=== PATIENT | female | born 1940 | race Asian ===

== ENCOUNTER 2023-12-22 08:46 | Inpatient (IN) | payer OTHER, MEDICAID ==
[~2023-12-22] VITALS: Ht 157.5 cm; Wt 63.5 kg
[2023-12-22] VITALS (7 sets, daily range): BP systolic 126–144; BP diastolic 78–90; PULSE 76–78; RESP 16–18; TEMP 96.7–97.7; O2SAT 94–98
[~2023-12-22 08:46] MED LIST: DONE10TA37 PO; EMPA10TA PO; MEGE40SU4 PO; MELA10CA PO; MEMA10TA56 PO; METF-346 PO; MIRT-33 PO; PANT40EC56 PO; RISP1SOL PO; ROSU10TA34 PO; VALP250S5 PO
[2023-12-22 10:41] LABS: BASOPHILS # (AUTO) 0.1 K/uL (0.00-0.22); BASOPHILS % (AUTO) 0.7 % (0.0-2.0); EOSINOPHILS # (AUTO) 0.1 K/uL (0-0.4); EOSINOPHILS % (AUTO) 1.4 % (0.0-4.0); HEMATOCRIT 37.1 % (36-48); HEMOGLOBIN 12.3 g/dL (12.0-16.0); LYMPHOCYTES # (AUTO) 1.4 K/uL (2.5-16.5); LYMPHOCYTES % (AUTO) 18.5 % (20.5-51.1); MEAN CORPUSCULAR HEMOGLOBIN 31 pg (27-31); MEAN CORPUSCULAR HGB CONC 33 g/dL (33-37); MEAN CORPUSCULAR VOLUME 92.9 fL (80-94); MONOCYTES # (AUTO) 0.7 K/uL (0.8-1.0); MONOCYTES % (AUTO) 8.6 % (1.7-9.3); NEUTROPHILS # (AUTO) 5.4 K/uL (1.8-7.7); NEUTROPHILS % (AUTO) 70.8 % (42.2-75.2); PLATELET COUNT (AUTO) 185 K/uL (140-450); RED CELL DISTRIBUTION WIDTH 14.3 % (11.6-13.7); WHITE BLOOD COUNT (AUTO) 7.7 K/uL (4.8-10.8)
[2023-12-22] MEDS ORDERED: OMEG100016 PO (10:42)
[2023-12-22] MEDS ORDERED: MEGE40SU5 PO (10:42)
[2023-12-22] MEDS ORDERED: DOCU-299 PO (10:42)
[2023-12-22] MEDS ORDERED: CRAN450T5 PO (10:42)
[2023-12-22] MEDS ORDERED: MULT-2429 PO (10:42)
[2023-12-22] MEDS ORDERED: VALP250S5 PO ×2 (10:42)
[2023-12-22] MEDS ORDERED: LACT1TAB34 PO (10:42)
[2023-12-22] MEDS ORDERED: MELA10CA PO (10:42)
[2023-12-22] MEDS ORDERED: CALC-810 PO (10:42)
[2023-12-22] MEDS ORDERED: ERTU5TAB PO (10:42)
[2023-12-22] MEDS ORDERED: INSU100S5 IJ (10:42)
[2023-12-22] MEDS ORDERED: RISP1SOL PO (10:42)
[2023-12-22] MEDS ORDERED: NYST15CR10 TP (10:42)
[2023-12-22 10:51] LABS: ANION GAP 12.2 (8-16); CALCIUM 9.2 mg/dL (8.5-10.1); CARBON DIOXIDE 28.4 mmol/L (21-32); CHLORIDE 106 mmol/L (98-107); CREATININE 0.9 mg/dL (0.6-1.3); GLUCOSE 97 mg/dL (74-106); POTASSIUM 3.6 mmol/L (3.5-5.1); SODIUM SERUM 143 mmol/L (136-145); UREA NITROGEN, BLOOD 12 mg/dL (7-18)
[2023-12-22 11:11] LABS: ALBUMIN 3.1 g/dL (3.4-5.0); BILIRUBIN,DIRECT 0.2 mg/dL (0.0-0.3); PHOSPHORUS 3.7 mg/dL (2.5-4.9); THYROID STIMULATING HORMONE 1.2 uIU/mL (0.34-3.74); TOTAL BILIRUBIN 0.7 mg/dL (0.0-1.0); TOTAL PROTEIN, SERUM 6.9 g/dL (6.4-8.2)
[2023-12-22 11:32] LABS: APPEARANCE,URINE CLEAR (CLEAR); BILIRUBIN,URINE NEGATIVE (NEGATIVE); BLOOD, URINE 1+ (NEGATIVE); COLOR,URINE YELLOW (YELLOW); LEUKOCYTE ESTERASE ,URINE TRACE (NEGATIVE); NITRITE, URINE POSITIVE (NEGATIVE); PROTEIN,URINE TRACE (NEGATIVE); UGLUCOSE 3+ (NEGATIVE)
[2023-12-22 11:52] LABS: BACTERIA,URINE 10-30 (MOD) /HPF (None Seen); SQUAMOUS EPITHELIAL CELL,UR 0-3 (FEW) /LPF (0-3 (FEW))
[2023-12-22] MEDS ORDERED: cefTRIAXone 1,000 MG VIAL ONE (12:19)
[2023-12-22] MEDS ORDERED: ONDANSETRON 4 MG/2 ML VIAL IVP PRN (12:40)
[2023-12-22] MEDS ORDERED: ACETAMINOPHEN 325 MG TAB PO PRN (12:40)
[2023-12-22] MEDS ORDERED: INSULIN LISPRO SLIDING SCALE 100 UNITS/ML VIAL SUBQ PRN (12:45)
[2023-12-22] MEDS ORDERED: DEXTROSE 50% 50 ML SYR IVP PRN (12:45)
[2023-12-22] MEDS: NACL 0.9% 1,000 ML IV SCH (13:02)
[2023-12-22] MEDS: BLOOD GLUCOSE MONITORING 1 DEV DEV FS SCH (17:21)
[2023-12-22] MEDS: MEMANTINE 10 MG TAB PO SCH (21:33)
[2023-12-23 04:00] VITALS: BP 128/74; PULSE 77; RESP 18; TEMP 97.3; O2SAT 94
[2023-12-23 07:15] LABS: BASOPHILS % (AUTO) 0.4 % (0.0-2.0); EOSINOPHILS # (AUTO) 0.2 K/uL (0-0.4); HEMATOCRIT 35.4 % (36-48); LYMPHOCYTES # (AUTO) 1.5 K/uL (2.5-16.5); LYMPHOCYTES % (AUTO) 18.3 % (20.5-51.1); MEAN CORPUSCULAR HEMOGLOBIN 32 pg (27-31); MEAN CORPUSCULAR HGB CONC 34 g/dL (33-37); MONOCYTES # (AUTO) 0.6 K/uL (0.8-1.0); MONOCYTES % (AUTO) 7.2 % (1.7-9.3); NEUTROPHILS % (AUTO) 72.1 % (42.2-75.2); PLATELET COUNT (AUTO) 190 K/uL (140-450); RED BLOOD CELL COUNT(AUTO) 3.81 MIL/uL (4.20-5.40); RED CELL DISTRIBUTION WIDTH 14.5 % (11.6-13.7); WHITE BLOOD COUNT (AUTO) 8.4 K/uL (4.8-10.8)
[2023-12-23 08:00] VITALS: BP 139/71; PULSE 91; RESP 18; TEMP 97.1; O2SAT 100
[2023-12-23 08:01] LABS: ALANINE AMINOTRANSFERASE 19 U/L (12-78); ALBUMIN 2.9 g/dL (3.4-5.0); ALKALINE PHOSPHATASE 62 U/L (50-136); ANION GAP 16.5 (8-16); ASPARTATE AMINOTRANSFERASE 29 U/L (15-37); CALCIUM 8.6 mg/dL (8.5-10.1); CARBON DIOXIDE 23.1 mmol/L (21-32); CHLORIDE 110 mmol/L (98-107); CREATININE 0.8 mg/dL (0.6-1.3); GLUCOSE 74 mg/dL (74-106); POTASSIUM 3.6 mmol/L (3.5-5.1); SODIUM SERUM 146 mmol/L (136-145); TOTAL BILIRUBIN 0.6 mg/dL (0.0-1.0); TOTAL PROTEIN, SERUM 6.5 g/dL (6.4-8.2); UREA NITROGEN, BLOOD 10 mg/dL (7-18)
[2023-12-23] MEDS: PANTOPRAZOLE 40 MG TABEC PO SCH (09:30)
[2023-12-23] MEDS: DONEPEZIL 10 MG TAB PO SCH (09:30)
[2023-12-23] MEDS: DOCUSATE SODIUM 100 MG GELCAP PO SCH (09:30)
[2023-12-23] MEDS ORDERED: RISPERIDONE PO SCH (17:00)
[2023-12-23 20:00] VITALS: BP 130/82; PULSE 80; RESP 18; TEMP 98.4; O2SAT 100; O2SAT 98
[2023-12-23] MEDS: ZOLPIDEM 5 MG TAB PO PRN (21:48)
[2023-12-24 04:00] VITALS: BP 136/75; PULSE 78; RESP 16; TEMP 97.9; O2SAT 98
[2023-12-24 06:56] LABS: BASOPHILS % (AUTO) 0.4 % (0.0-2.0); EOSINOPHILS # (AUTO) 0.1 K/uL (0-0.4); HEMATOCRIT 36.3 % (36-48); HEMOGLOBIN 12.2 g/dL (12.0-16.0); LYMPHOCYTES # (AUTO) 1.4 K/uL (2.5-16.5); LYMPHOCYTES % (AUTO) 18.4 % (20.5-51.1); MEAN CORPUSCULAR HEMOGLOBIN 31 pg (27-31); MEAN CORPUSCULAR HGB CONC 34 g/dL (33-37); MEAN CORPUSCULAR VOLUME 93.3 fL (80-94); MONOCYTES # (AUTO) 0.6 K/uL (0.8-1.0); MONOCYTES % (AUTO) 7.4 % (1.7-9.3); NEUTROPHILS # (AUTO) 5.3 K/uL (1.8-7.7); NEUTROPHILS % (AUTO) 71.8 % (42.2-75.2); PLATELET COUNT (AUTO) 196 K/uL (140-450); RED BLOOD CELL COUNT(AUTO) 3.89 MIL/uL (4.20-5.40); RED CELL DISTRIBUTION WIDTH 14.6 % (11.6-13.7); WHITE BLOOD COUNT (AUTO) 7.4 K/uL (4.8-10.8)
[2023-12-24 08:00] VITALS: BP 139/81; PULSE 86; RESP 18; TEMP 97.1; O2SAT 96
[2023-12-24 08:01] LABS: ALANINE AMINOTRANSFERASE 20 U/L (12-78); ALBUMIN 2.8 g/dL (3.4-5.0); ALKALINE PHOSPHATASE 63 U/L (50-136); ANION GAP 16.1 (8-16); ASPARTATE AMINOTRANSFERASE 23 U/L (15-37); CALCIUM 8.5 mg/dL (8.5-10.1); CARBON DIOXIDE 23.3 mmol/L (21-32); CHLORIDE 109 mmol/L (98-107); CREATININE 0.8 mg/dL (0.6-1.3); GLUCOSE 87 mg/dL (74-106); POTASSIUM 3.4 mmol/L (3.5-5.1); SODIUM SERUM 145 mmol/L (136-145); TOTAL BILIRUBIN 0.5 mg/dL (0.0-1.0); TOTAL PROTEIN, SERUM 6.4 g/dL (6.4-8.2); UREA NITROGEN, BLOOD 7 mg/dL (7-18)
[2023-12-24 08:43] VITALS: PULSE 78; RESP 20; O2SAT 99
[2023-12-24] MEDS ORDERED: VALPROIC ACID PO SCH (09:00)
[2023-12-24] MEDS: VALPROIC ACID 250 MG/5 ML UDC GT SCH (09:21)
[2023-12-24] MEDS: risperiDONE 1 MG TAB PO SCH (09:22)
[2023-12-24] MEDS: CHOLECALCIFEROL 1,000 IU TAB PO SCH (09:22)
[2023-12-24] MEDS: CIPROFLOXACIN 400 MG/200ML-D5W 200 ML IV SCH (12:19)
[2023-12-24 16:00] VITALS: BP 125/78; PULSE 92; RESP 18; TEMP 97.6; O2SAT 100
[2023-12-24] MEDS: POTASSIUM CHLORIDE 10 MEQ TABER PO PRN (17:12)
[2023-12-24 20:00] VITALS: BP 139/78; PULSE 85; RESP 18; TEMP 98.1; O2SAT 99
[2023-12-25 04:00] VITALS: BP 145/78; PULSE 101; RESP 18; TEMP 98.8; O2SAT 95
[2023-12-25 07:00] LABS: BASOPHILS % (AUTO) 0.3 % (0.0-2.0); EOSINOPHILS # (AUTO) 0.1 K/uL (0-0.4); EOSINOPHILS % (AUTO) 0.6 % (0.0-4.0); HEMATOCRIT 35.9 % (36-48); HEMOGLOBIN 12.1 g/dL (12.0-16.0); LYMPHOCYTES % (AUTO) 10.6 % (20.5-51.1); MEAN CORPUSCULAR HEMOGLOBIN 31 pg (27-31); MEAN CORPUSCULAR HGB CONC 34 g/dL (33-37); MEAN CORPUSCULAR VOLUME 92.7 fL (80-94); MONOCYTES # (AUTO) 0.8 K/uL (0.8-1.0); MONOCYTES % (AUTO) 8.9 % (1.7-9.3); NEUTROPHILS # (AUTO) 7.4 K/uL (1.8-7.7); NEUTROPHILS % (AUTO) 79.6 % (42.2-75.2); PLATELET COUNT (AUTO) 199 K/uL (140-450); RED BLOOD CELL COUNT(AUTO) 3.87 MIL/uL (4.20-5.40); RED CELL DISTRIBUTION WIDTH 14.6 % (11.6-13.7); WHITE BLOOD COUNT (AUTO) 9.3 K/uL (4.8-10.8)
[2023-12-25 07:35] LABS: ALANINE AMINOTRANSFERASE 17 U/L (12-78); ALBUMIN 2.9 g/dL (3.4-5.0); ALKALINE PHOSPHATASE 65 U/L (50-136); ANION GAP 14.8 (8-16); ASPARTATE AMINOTRANSFERASE 20 U/L (15-37); CALCIUM 8.5 mg/dL (8.5-10.1); CARBON DIOXIDE 23.1 mmol/L (21-32); CHLORIDE 108 mmol/L (98-107); CREATININE 0.8 mg/dL (0.6-1.3); GLUCOSE 97 mg/dL (74-106); POTASSIUM 3.9 mmol/L (3.5-5.1); SODIUM SERUM 142 mmol/L (136-145); TOTAL BILIRUBIN 0.7 mg/dL (0.0-1.0); TOTAL PROTEIN, SERUM 6.4 g/dL (6.4-8.2); UREA NITROGEN, BLOOD 6 mg/dL (7-18)
[2023-12-25 08:00] VITALS: PULSE 77; RESP 18; O2SAT 98
[2023-12-25 12:00] VITALS: BP 123/71; PULSE 80; RESP 17; TEMP 97.1; O2SAT 99
[2023-12-25 14:33] VITALS: BP 123/71; PULSE 80; RESP 18; TEMP 97.1
== END 2023-12-25 14:45 | DRG 689 ==
LOC: MED 08:46 → MMU 12:42 → MTU 18:40
PROVIDERS: ADMIT Student in an Organized Health Care Education/Training Program; ATTEND Student in an Organized Health Care Education/Training Program
DX: N39.0 Urinary tract infection, site not specified (principal); G93.41 Metabolic encephalopathy; E44.0 Moderate protein-calorie malnutrition; E87.6 Hypokalemia; I10 Essential (primary) hypertension; E11.9 Type 2 diabetes mellitus without complications; E78.5 Hyperlipidemia, unspecified; G30.9 Alzheimer's disease, unspecified; F02.80 Dementia in other diseases classified elsewhere, unspecified severity, without behavioral disturbance, psychotic disturbance, mood disturbance, and anxiety; Z79.899 Other long term (current) drug therapy; Z68.25 Body mass index [BMI] 25.0-25.9, adult
CPT/HCPCS: 36415; 70450; 71045; 73562; 80048; 80053; 80076; 81001; 82948; 83036; 83735; 84100; 84443; 85025; 87081; 87086; 87186; 93005; 96365; 97163-GP; 97530; 99285; J0696; J0744; J1815; J7060